=== PATIENT | male | born 1985 | race Caucasian/White ===

== ENCOUNTER 2017-02-15 17:39 | Emergency (ER) | payer SELFPAY ==
[2017-02-15 17:43] VITALS: BP 147/97; PULSE 79; TEMP 98.5; BMI 31.1
--- NOTE | 2017-02-15 17:43 | PDOC ---
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 I have performed a brief in-person evaluation of this patient. Pertinent physical exam findings: erythema to left sclera, eomI, no visual impairment I have ordered the following: none The patient will proceed to the ED for further evaluation. Discharge Disposition - Diagnosis Left eye pain - Referrals - Patient Instructions - Post Discharge Activity
--- NOTE | 2017-02-15 17:52 | PDOC ---
History of Present Illness - General Chief Complaint: Eye Problem Stated Complaint: EYE PAIN Time Seen by Provider: 02/15/17 17:41 History Source: Patient - History of Present Illness Timing/Duration: other (today) Past History - Past Medical History Allergies/Adverse Reactions: Allergies Allergy/AdvReac Type Severity Reaction Status Date / Time No Known Allergies Allergy Verified 02/15/17 17:42 Home Medications: Ambulatory Orders Erythromycin 0.5% Eye Ointment [Erythromycin 0.5% Eye Ointment -] 1 applic OS DAILY #1 tube 02/15/17 Ibuprofen [Motrin -] 600 mg PO QID #28 tablet 02/15/17 COPD: No Other medical history: NONE - Suicide/Smoking/Psychosocial Hx Smoking History: Never smoked Hx Alcohol Use: No Drug/Substance Use Hx: No Substance Use Type: None Review of Systems - Review of Systems HEENTM: Yes: Eye Pain, Tearing. No: Blurred Vision *Physical Exam - Vital Signs Last Vital Signs Temp Pulse Resp BP Pulse Ox 98.5 F 79 20 147/97 98 02/15/17 17:40 02/15/17 17:40 02/15/17 17:40 02/15/17 17:40 02/15/17 17:40 - Physical Exam General Appearance: Yes: Appropriately Dressed, Mild Distress HEENT: positive: Normal Voice, Other (sceral injection, no gross fb or fb on lid eversion, +tearing, ~2-3mm uptake in the 7 0'clock position to L eye). negative: Scleral Icterus (R), Scleral Icterus (L) Medical Decision Making - Medical Decision Making 02/15/17 17:51 31-year-old male, no significant history here with foreign body sensation to left eye while sweeping up some construction debris at work today. States he immediately rubbed eye and has since irrigated with water, but continues to have pain and foreign body sensation. + tearing, no photophobia, discharge or visual changes See exam Corneal abrasion -tetanus UTD -pain control -dc w/ abx 02/15/17 18:16 *DC/Admit/Observation/Transfer Diagnosis at time of Disposition: Left eye pain Corneal abrasion Qualifiers: Encounter type: initial encounter Laterality: left Qualified Code(s): S05.02XA - Injury of conjunctiva and corneal abrasion without foreign body, left eye, initial encounter - Discharge Dispostion Disposition: HOME Condition at time of disposition: Good - Prescriptions Prescriptions: Erythromycin 0.5% Eye Ointment [Erythromycin 0.5% Eye Ointment -] 1 applic OS DAILY #1 tube Ibuprofen [Motrin -] 600 mg PO QID #28 tablet - Referrals - Patient Instructions Printed Discharge Instructions: Corneal Abrasion Additional Instructions: You have a scratch in your eye that will heal on its own. Use antibiotic ointment as directed and take Motrin as needed. Continue to irrigate eye at home for any possible foreign body sensation Return for worsening of symptoms - Post Discharge Activity
[2017-02-15] MEDS ORDERED: IBUPROFEN 400 MG TABLET (FP) PO ONE ×2 (18:08→18:09)
== END 2017-02-15 18:13 | disposition home or self-care (01) ==
LOC: JERFT 17:39
DX: S05.02XA Injury of conjunctiva and corneal abrasion without foreign body, left eye, initial encounter (principal); X58.XXXA Exposure to other specified factors, initial encounter; Y93.H9 Activity, other involving exterior property and land maintenance, building and construction; Y92.69 Other specified industrial and construction area as the place of occurrence of the external cause
CPT/HCPCS: 99281-25

== ENCOUNTER 2018-11-19 12:21 | Emergency (ER) | payer SELFPAY ==
[2018-11-19 12:29] VITALS: BP 128/95; PULSE 89; TEMP 99.3; BMI 32.1
[2018-11-19] MEDS ORDERED: SODIUM CHLORIDE 1,000 ML IV STA ×2 (14:05→16:18)
[2018-11-19] MEDS ORDERED: ACETAMINOPHEN 1000 MG/100 ML VIAL (NON FORMULARY) IVPB ONE (14:05)
[2018-11-19] MEDS ORDERED: ONDANSETRON 4 MG/2 ML VIAL IVPUSH ONE (14:05)
--- NOTE | 2018-11-19 14:05 | PDOC ---
History of Present Illness - General Chief Complaint: Pain Stated Complaint: ABD PAIN Time Seen by Provider: 11/19/18 13:40 History Source: Patient Exam Limitations: No Limitations Past History - Travel Traveled outside of the country in the last 30 days: No Close contact w/someone who was outside of country & ill: No - Past Medical History Allergies/Adverse Reactions: Allergies Allergy/AdvReac Type Severity Reaction Status Date / Time No Known Allergies Allergy Verified 11/19/18 12:28 Home Medications: Ambulatory Orders Erythromycin 0.5% Eye Ointment [Erythromycin 0.5% Eye Ointment -] 1 applic OS DAILY #1 tube 02/15/17 Ibuprofen [Motrin -] 600 mg PO QID #28 tablet 02/15/17 Ondansetron [Zofran Odt -] 4 mg SL TID #10 od.tablet 11/19/18 metroNIDAZOLE [Flagyl -] 500 mg PO DAILY #7 tablet 11/19/18 COPD: No - Suicide/Smoking/Psychosocial Hx Smoking History: Never smoked Have you smoked in the past 12 months: No Information on smoking cessation initiated: No Hx Alcohol Use: Yes Drug/Substance Use Hx: No Substance Use Type: None Review of Systems - Review of Systems Able to Perform ROS?: Yes Comments:: 11/19/18 16:38 CONSTITUTIONAL: Absent: fever, chills, diaphoresis, generalized weakness, malaise, loss of appetite HEENT: Absent: rhinorrhea, nasal congestion, throat pain, throat swelling, difficulty swallowing, mouth swelling, ear pain, eye pain, visual Changes CARDIOVASCULAR: Absent: chest pain, loss of consciousness, palpitations, irregular heart rate, peripheral edema RESPIRATORY: Absent: cough, shortness of breath, dyspnea with exertion, orthopnea, wheezing, stridor, hemoptysis GASTROINTESTINAL: Present: abdominal pain, nausea, diarrhea Absent: abdominal distension, constipation, melena, hematochezia GENITOURINARY: Absent: dysuria, frequency, urgency, hesitancy, hematuria, flank pain, genital pain MUSCULOSKELETAL: Absent: myalgia, arthralgia, joint swelling SKIN: Absent: rash, itching, pallor HEMATOLOGIC/IMMUNOLOGIC: Absent: easy bleeding, easy bruising, lymphadenopathy, frequent infections ENDOCRINE: Absent: unexplained weight gain, unexplained weight loss, heat intolerance, cold intolerance NEUROLOGIC: Absent: headache, focal weakness or paresthesias, dizziness, unsteady gait, seizure, mental status changes, bladder or bowel incontinence PSYCHIATRIC: Absent: anxiety, depression, suicidal or homicidal ideation, hallucinations. Is the patient limited Irish proficient: No *Physical Exam - Vital Signs Last Vital Signs Temp Pulse Resp BP Pulse Ox 99.3 F 89 18 128/95 100 11/19/18 12:26 11/19/18 12:26 11/19/18 12:26 11/19/18 12:11/19/18 12:26 - Physical Exam Comments: 11/19/18 16:38 GENERAL: Well developed, well nourished. Awake and alert. No acute distress. HEENT: Normocephalic, atraumatic. PERRLA, EOMI. No conjunctival pallor. Sclera are non- icteric. Moist mucous membranes. Oropharynx is clear. NECK: Supple. Full ROM. No JVD. Carotid pulses 2+ and symmetric, without bruits. No thyromegaly. No lymphadenopathy. CARDIOVASCULAR: Regular rate and rhythm. No murmurs, rubs, or gallops. Distal pulses are 2+ and symmetric. PULMONARY: No evidence of respiratory distress. Lungs clear to auscultation bilaterally. No wheezing, rales or rhonchi. ABDOMINAL: TTP of lower abdomen, RLQ with radiating pain to the LLQ. Soft. Non-distended. No rebound or guarding. No organomegaly. Normoactive bowel sounds. MUSCULOSKELETAL Normal range of motion at all joints. No bony deformities or tenderness. No CVA tenderness. EXTREMITIES: No cyanosis. No clubbing. No edema. No calf tenderness. SKIN: Warm and dry. Normal capillary refill. No rashes. No jaundice. NEUROLOGICAL: Alert, awake, appropriate. Cranial nerves 2-12 intact. No deficits to light touch and temperature in face, upper extremities and lower extremities. No motor deficits in the in face, upper extremities and lower extremities. Normoreflexic in the upper and lower extremities. Normal speech. Toes are down- going bilaterally. Gait is normal without ataxia. PSYCHIATRIC: Cooperative. Good eye contact. Appropriate mood and affect. ED Treatment Course - LABORATORY CBC & Chemistry Diagram: 11/19/18 14:29 11/19/18 14:29 Medical Decision Making - Medical Decision Making 11/19/18 16:39 The patient is a 33-year-old male otherwise healthy who presents to the ER today for three days of lower abdominal pain, nausea, vomiting and diarrhea. He stats that his symptoms started suddenly. Denies recent travel, eating out, recent antibiotic use, or recent hospital stay. He has not tried taking anything for his symptoms. Denies fevers, chills, sore throat, cough, chest pain , SOB, urinary symptoms. A/P: abdominal pain On exam pt with RLQ that radiates to the LLQ and vise versa Afebrile, VSS Labs, urine, CTAP ordered IVF, GI cocktail ordered No leukocytosis, urine is negative CTAP shows enteritis vs colitis Will treat at this time DC home with GI follow up I discussed the physical exam findings, ancillary test results and final diagnoses with the patient. I answered all of the patient's questions. The patient was satisfied with the care received and felt comfortable with the discharge plan and treatment plan. The Patient agrees to follow up with the primary care physician/specialist within 24-72 hours. Return precautions were given. *DC/Admit/Observation/Transfer Diagnosis at time of Disposition: Colitis - Discharge Dispostion Disposition: HOME Condition at time of disposition: Stable Decision to Admit order: No - Referrals Referrals: Arthur Metz MD [Staff Physician] - Gerardo Brambila MD [Staff Physician] - - Patient Instructions Printed Discharge Instructions: DI for Colitis Additional Instructions: You were evaluated for your abdominal pain today You have colitis or an infection in your colon Please take the antibiotics (flagyl) starting tomorrow. Finish the entire bottle even if you feel better Take the zofran eveyr 8 hours as needed for vomiting or nausea Avoid all dairy products until 48 hours after the vomiting/diarrhea has resolved. Eat a bland diet including apple sauce, toast, bananas, and plain rice Drink plenty of fluids including pedialyte, watered down juices and water Follow up with your primary care doctor this week. You were also given a referral for a stomach (GI) doctor Return to the ED if you develop fevers, abdominal pain, worsening vomiting, or if you have any changes in your symptoms. Usted fue evaluado por liriano dolor abdominal hoy Tiene colitis o theo infeccin en liriano colon. [place] los antibiticos (flagyl) a partir de maana. Termina toda la botella incluso si te sientes mejor [place] el zofran eveyr 8 horas segn sea necesario para el vmito o las nuseas. Evite todos los productos lcteos hasta 48 horas despus de que el vmito / diarrea se haya resuelto. Coma theo dieta blanda que incluya salsa de manzana, tostadas, pltanos y arroz simple Teri muchos lquidos, incluidos pedialyte, jugos diluidos y agua. Enoc un seguimiento con liriano mdico de atencin primaria esta semana. Betzy le dieron theo referencia para un mdico de estmago (GI) Regrese al servicio de urgencias si desarrolla fiebre, dolor abdominal, empeoramiento del vmito o si tiene algn cambio en susan sntomas. Print Language: [place] - Post Discharge Activity Forms/Work/School Notes: Back to Work
[2018-11-19] MEDS ORDERED: ACETAMINOPHEN INJECTION 100 ML IVPB ONE (14:24)
[2018-11-19] MEDS ORDERED: ONDANSETRON 4 MG/2 ML VIAL ONE (14:25)
[2018-11-19 15:02] LABS: BASO % 0.4 % (0-2.0); EOS % 2.5 % (0-4.5); HEMOGLOBIN 15.8 GM/dL (11.7-16.9); LYMPH % 17.1 % (8-40); MCH 32.3 pg (25.7-33.7); MCHC 34.3 g/dl (32.0-35.9); MEAN PLT VOLUME 7.8 fl (7.5-11.1); MONO % 8.1 % (3.8-10.2); NEUT % 71.9 % (42.8-82.8); PLATELET COUNT 285 K/MM3 (134-434); RDW 13.2 % (11.9-15.9); WHITE BLOOD COUNT 9.3 K/mm3 (4.0-10.0)
[2018-11-19 15:05] LABS: PH,URINE 5.5 (5.0-8.0); URINE APPEARANCE CLEAR; URINE BILIRUBIN NEGATIVE (NEGATIVE); URINE COLOR YELLOW; URINE GLUCOSE (UA) NEGATIVE (NEGATIVE); URINE KETONE NEGATIVE (NEGATIVE); URINE LEUK ESTERASE NEGATIVE (NEGATIVE); URINE NITRITE NEGATIVE (NEGATIVE); URINE PROTEIN NEGATIVE (NEGATIVE); URINE UROBILINOGEN 0.2 mg/dL (0.2-1.0)
[2018-11-19 15:17] LABS: ALBUMIN 4.1 g/dl (3.4-5.0); BILIRUBIN,TOTAL 0.7 mg/dL (0.2-1); BLOOD UREA NITROGEN 18.5 mg/dL (7-18); CALCIUM 9.5 mg/dL (8.5-10.1); TOT PROT 7.7 g/dl (6.4-8.2)
[2018-11-19 15:21] LABS: INR 1.03 (0.83-1.09); PROTHROMBIN TIME (PATIENT) 12.2 SEC (9.7-13.0)
--- NOTE | 2018-11-20 13:07 | EKG ---
Test Reason : Blood Pressure : / mmHG Vent. Rate : 082 BPM Atrial Rate : 082 BPM P-R Int : 160 ms QRS Dur : 116 ms QT Int : 378 ms P-R-T Axes : 062 022 039 degrees QTc Int : 441 ms NORMAL SINUS RHYTHM NORMAL ECG NO PREVIOUS ECGS AVAILABLE Confirmed by MD Alfred, Max ([id number]) on 11/20/2018 1:07:09 PM Referred By: Confirmed By:Max Simon MD
== END 2018-11-19 18:04 | disposition home or self-care (01) ==
LOC: JER 12:21
PROC: 3E0337Z Introduction of Electrolytic and Water Balance Substance into Peripheral Vein, Percutaneous Approach (ICD-10-PCS; principal; 2018-11-19)
PROC: 3E03329 Introduction of Other Anti-infective into Peripheral Vein, Percutaneous Approach (ICD-10-PCS; 2018-11-19)
PROC: 3E033GC Introduction of Other Therapeutic Substance into Peripheral Vein, Percutaneous Approach (ICD-10-PCS; 2018-11-19)
PROC: 3E033NZ Introduction of Analgesics, Hypnotics, Sedatives into Peripheral Vein, Percutaneous Approach (ICD-10-PCS; 2018-11-19)
DX: K52.9 Noninfective gastroenteritis and colitis, unspecified (principal)
CPT/HCPCS: 36415; 74177-TC; 80053; 81003; 85025; 85610; 87086; 93005; 93010; 99283-25; J0131; J7030

== ENCOUNTER 2019-11-13 19:41 | Emergency (ER) | payer OTHER ==
[2019-11-13] MEDS ORDERED: IBUPROFEN 600 MG TABLET (FP) PO ONE ×2 (19:54→20:17)
--- NOTE | 2019-11-13 19:55 | PDOC ---
Rapid Medical Evaluation Time Seen by Provider: 11/13/19 19:48 Medical Evaluation: Allergies Allergy/AdvReac Type Severity Reaction Status Date / Time No Known Allergies Allergy Verified 11/19/18 12:28 11/13/19 19:50 I performed a brief in-person evaluation of this patient. 34 y/o male presents to the ED with a headache that he had on Monday and then again today. He denies recent travel or covid contacts. He took Tylenol for the headache and he states it helped him. He denies any fevers. Denies any m edical history or allergies. Also complaining of a scratchy throat. No cough. Pertinent physical exam findings: speaking in full sentences, no nasal congestion, no cough, clear lungs I have ordered the following: Motrin PO Patient to proceed to ED for further evaluation. Discharge Disposition - Diagnosis Headache - Referrals - Patient Instructions - Post Discharge Activity
[2019-11-13 20:02] VITALS: BP 135/81; PULSE 71; TEMP 97.6; BMI 29.1
--- NOTE | 2019-11-13 20:11 | PDOC ---
History of Present Illness - General Chief Complaint: Headache Stated Complaint: HEADACHE Time Seen by Provider: 11/13/19 19:48 - History of Present Illness Initial Comments: 11/13/19 20:10 34-year-old male denies comorbidities presents for evaluation of headache and sore throat x2 days. Headache relieved with extra strength Tylenol at home. He continues to have intermittent sore throat Past History - Medical History Allergies/Adverse Reactions: Allergies Allergy/AdvReac Type Severity Reaction Status Date / Time No Known Allergies Allergy Verified 11/19/18 12:28 Home Medications: Ambulatory Orders Erythromycin 0.5% Eye Ointment [Erythromycin 0.5% Eye Ointment -] 1 applic OS DAILY #1 tube 02/15/17 Ibuprofen [Motrin -] 600 mg PO QID #28 tablet 02/15/17 Ondansetron [Zofran Odt -] 4 mg SL TID #10 od.tablet 11/19/18 metroNIDAZOLE [Flagyl -] 500 mg PO DAILY #7 tablet 11/19/18 COPD: No - Psycho-Social/Smoking History Smoking History: Never smoked Have you smoked in the past 12 months: No - Substance Abuse Hx (Audit-C & DAST Scrn) How often the patient has a drink containing alcohol: Monthly or less Number of drinks the patient has on a typical day: 1 or 2 How often the patient has six or more drinks on one occasion: Monthly Score: In Men: 4 or > Positive; In Women: 3 or > Positive: 3 Screen Result (Pos requires Nsg. Audit-10AR): Negative In the last yr the pt used illegal drug/Rx for NonMed reason: No Score: Yes response is considered Positive: 0 Screen Result (Positive result requires Nsg. DAST-10): Negative Review of Systems - Review of Systems Constitutional: No: Fever HEENTM: Yes: Throat Pain Respiratory: Yes: Cough Neurological: Yes: Headache *Physical Exam - Vital Signs Last Vital Signs Temp Pulse Resp BP Pulse Ox 97.6 F 71 19 135/81 98 11/13/19 19:48 11/13/19 19:48 11/13/19 19:48 11/13/19 19:48 11/13/19 19:48 - Physical Exam 11/13/19 20:11 HEAD: NC/AT EYES: Conjuntiva clear Ears: Canals and TM's normal NOSE: No d/c THROAT: Moist mucous membrances, oral pharanx erythemic with out exudate, uvula midline NECK: Supple without adenopathy CARDIAC: S1 S2 LUNGS: CTA Full and Equal breath sounds ABDOMEN: Soft NT ND MS: Full ROM in all joints without edema NEUROLOGIC: No gross sensory or motor deficits, NVID SKIN: Normal color and temperature no lesions or rashes Medical Decision Making - Medical Decision Making 11/13/19 21:34 Negative rapid strep throat culture sent most likely a viral pharyngitis supportive care COVID swab pending. Isolation until resulted Tylenol for pain return to the emergency room for worsening symptoms I have reviewed the pathophysiology with the patient. They are in agreement with the treatment plan all questions were answered to their satisfaction. Understanding for follow-up without fail was also conveyed to the patient. Again they are in agreement. Discharge - Discharge Information Problems reviewed: Yes Clinical Impression/Diagnosis: Headache, Sore throat Condition: Stable Disposition: HOME - Admission No - Follow up/Referral Referrals: Arnol Gonzalez MD [Staff Physician] - - Patient Discharge Instructions Additional Instructions: Tylenol for any discomfort. Return to the emergency room for worsening symptoms. Isolation until COVID swab has been resulted which should take aboutOr days. Without fail follow-up with your primary care physician in 1 to 2 days for further evaluation and treatment options. - Post Discharge Activity
[2019-11-13 21:30] LABS: THROAT:GRP A STREP ANTIGEN Negative (Negative)
== END 2019-11-13 21:45 | disposition home or self-care (01) ==
LOC: JERFT 19:41 → JER 19:41 → JERFT 21:45
DX: R51 Headache (principal); J02.9 Acute pharyngitis, unspecified
CPT/HCPCS: 87070; 87880; 99283-25; U0003

== ENCOUNTER 2020-02-03 18:40 | Emergency (ER) | payer OTHER ==
[2020-02-03 18:58] VITALS: BP 156/81; PULSE 82; TEMP 97.6; BMI 26.4
[2020-02-03] MEDS ORDERED: KETOROLAC TROMETHAMINE 30 MG/1 ML VIAL IM ONE (20:38)
[2020-02-03] MEDS ORDERED: KETOROLAC TROMETHAMINE 30 MG/1 ML VIAL ONE (20:38)
== END 2020-02-03 21:06 | disposition home or self-care (01) ==
LOC: JERFT 18:40
PROC: 3E0233Z Introduction of Anti-inflammatory into Muscle, Percutaneous Approach (ICD-10-PCS; principal; 2020-02-03)
DX: M62.838 Other muscle spasm (principal)
CPT/HCPCS: 99284-25

== ENCOUNTER 2020-03-06 15:02 | Emergency (ER) | payer OTHER ==
[2020-03-06 15:10] VITALS: BP 115/79; PULSE 84; TEMP 97.2; BMI 33.0
[2020-03-06] MEDS ORDERED: KETOROLAC TROMETHAMINE 30 MG/1 ML VIAL IM ONE (15:29)
[2020-03-06] MEDS ORDERED: KETOROLAC TROMETHAMINE 30 MG/1 ML VIAL ONE (15:43)
== END 2020-03-06 16:29 | disposition home or self-care (01) ==
LOC: JERFT 15:02
PROC: 3E0233Z Introduction of Anti-inflammatory into Muscle, Percutaneous Approach (ICD-10-PCS; principal; 2020-03-06)
DX: M76.52 Patellar tendinitis, left knee (principal)
CPT/HCPCS: 73562-TC-LT-FY; 99284-25

== ENCOUNTER 2021-05-09 12:01 | Emergency (ER) | payer OTHER ==
[2021-05-09 12:06] VITALS: TEMP 98; BMI 29.0
[2021-05-09] MEDS ORDERED: SODIUM CHLORIDE 0.9% 500 ML INFUS.BAG IV ONE (13:22)
[2021-05-09] MEDS ORDERED: KETOROLAC TROMETHAMINE 30 MG/1 ML VIAL IVPUSH ONE (13:22)
[2021-05-09] MEDS ORDERED: KETOROLAC TROMETHAMINE 30 MG/1 ML VIAL ONE (13:35)
[2021-05-09 13:59] LABS: BASO % 0.5 % (0-2.0); EOS % 1.3 % (0-4.5); HEMOGLOBIN 16.3 GM/dL (11.7-16.9); MCH 31.8 pg (25.7-33.7); MCHC 34.8 g/dl (32.0-35.9); MEAN CELL VOLUME 91.3 fl (80-96); MEAN PLT VOLUME 7.4 fl (7.5-11.1); MONO % 10.8 % (3.8-10.2); NEUT % 69.4 % (42.8-82.8); PLATELET COUNT 218 10^3/uL (134-434); RBC 5.15 M/mm3 (4.00-5.60); RDW 13.5 % (11.9-15.9); WHITE BLOOD COUNT 6.9 K/mm3 (4.0-10.0)
[2021-05-09 14:09] LABS: PH,URINE 5.5 (5.0-8.0); URINE APPEARANCE CLEAR; URINE BILIRUBIN NEGATIVE (NEGATIVE); URINE COLOR YELLOW; URINE GLUCOSE (UA) NEGATIVE (NEGATIVE); URINE KETONE NEGATIVE (NEGATIVE); URINE LEUK ESTERASE NEGATIVE (NEGATIVE); URINE NITRITE NEGATIVE (NEGATIVE); URINE PROTEIN TRACE (NEGATIVE); URINE UROBILINOGEN 0.2 mg/dL (0.2-1.0)
[2021-05-09 14:18] LABS: CALCIUM 8.7 mg/dL (8.5-10.1)
[2021-05-09 14:19] LABS: ALBUMIN 4.1 g/dl (3.4-5.0); BLOOD UREA NITROGEN 16.2 mg/dL (7-18)
[2021-05-09 14:23] LABS: BILIRUBIN,TOTAL 0.5 mg/dL (0.2-1)
[2021-05-09 14:24] LABS: TOT PROT 7.7 g/dl (6.4-8.2)
[2021-05-09 16:27] VITALS: BP 114/77; PULSE 66
[2021-05-10 18:07] LABS: SARS-CoV-2 NAA Not Detected (Not Detected)
== END 2021-05-09 16:28 | disposition home or self-care (01) ==
LOC: JER 12:01
PROC: 3E033GC Introduction of Other Therapeutic Substance into Peripheral Vein, Percutaneous Approach (ICD-10-PCS; principal; 2021-05-09)
DX: R10.30 Lower abdominal pain, unspecified (principal)
CPT/HCPCS: 36415; 71046-TC-FY; 74177-TC; 80053; 81003; 85025; 87086; 96374; 99285-25; C9803; U0003; U0005

== ENCOUNTER 2023-02-03 22:17 | Emergency (ER) | payer SELFPAY ==
[2023-02-03 22:23] VITALS: BP 123/87; PULSE 103; RESP 18; TEMP 99.2; BMI 29.8
[2023-02-03] MEDS ORDERED: IBUPROFEN 600 MG TABLET (FP) PO ONE ×2 (23:04→23:08)
[2023-02-03 23:44] LABS: THROAT:GRP A STREP NOT DETECTED (NOTDETECTED)
== END 2023-02-04 00:09 | disposition home or self-care (01) ==
LOC: JER 22:17
DX: J02.9 Acute pharyngitis, unspecified (principal); R05.9 Cough, unspecified; R09.81 Nasal congestion; R50.9 Fever, unspecified; J06.9 Acute upper respiratory infection, unspecified; Z20.822 Contact with and (suspected) exposure to COVID-19
CPT/HCPCS: 0241U-QW; 87651; 99283-25

== ENCOUNTER 2024-02-22 16:54 | Emergency (ER) | payer OTHER ==
[2024-02-22 17:03] VITALS: BP 169/94; PULSE 82; RESP 18; TEMP 97.7; BMI 34.7
[2024-02-22] MEDS ORDERED: DIPHTH,PERTUSS(ACELL),TET 0.5 ML DISP.SYRIN IM ONE (18:15)
[2024-02-22] MEDS: DIPHTH,PERTUSS(ACELL),TET 0.5 ML DISP.SYRIN IM ONE (18:23)
== END 2024-02-22 18:26 | disposition home or self-care (01) ==
LOC: JER 16:54
PROC: 0XQKXZZ Repair Left Hand, External Approach (ICD-10-PCS; principal; 2024-02-22)
DX: S61.012A Laceration without foreign body of left thumb without damage to nail, initial encounter (principal); W26.0XXA Contact with knife, initial encounter; Y99.0 Civilian activity done for income or pay; Z23 Encounter for immunization
CPT/HCPCS: 12001-25; 90471; 90715; 99284-25